=== PATIENT | female | born 1980 | race Caucasian/White ===

== ENCOUNTER 2017-04-08 06:11 | Day surgery (SDC) | payer MEDICAID ==
[2017-04-08 06:46] LABS: ADD MAN DIFF? NO
[2017-04-08 06:47] LABS: BASOPHIL # 0.1 10^3/ul (0.0-0.1); BASOPHILS % 0.8 % (0.0-2.0); EOSINOPHILS # 0.2 10^3/ul (0.0-0.5); EOSINOPHILS % 2.4 % (0.0-7.0); HEMATOCRIT 34.8 % (37.0-47.0); HEMOGLOBIN 12.5 g/dl (12.0-16.0); LYMPHOCYTES # 2.2 10^3/ul (0.8-2.9); MEAN CORPUSCULAR HEMOGLOBIN 31.3 pg (29.0-33.0); MEAN CORPUSCULAR HGB CONC 35.9 g/dl (32.0-37.0); MEAN PLATELET VOLUME 10.2 fl (7.4-10.4); MONOCYTE # 0.4 10^3/ul (0.3-0.9); MONOCYTES % 5.6 % (0.0-11.0); NEUTROPHIL # 3.8 10^3/ul (1.6-7.5); PLATELET COUNT 255 10^3/UL (140-415); RED CELL DISTRIBUTION WIDTH 12.5 % (11.5-14.5)
[2017-04-08 06:47] LABS: WHITE BLOOD COUNT 6.6 10^3/ul (4.8-10.8)
[2017-04-08] MEDS ORDERED: CEFAZOLIN 1 GM INJ (07:00)
[2017-04-08] MEDS ORDERED: MIDAZOLAM 1 MG/ML 2 ML INJ (07:31)
[2017-04-08] MEDS ORDERED: FENTAnyl 50 MCG/ML VIAL (07:31)
[2017-04-08] MEDS ORDERED: PROPOFOL 20 ML (07:33)
[2017-04-08] MEDS ORDERED: ONDANSETRON 4 MG INJ (07:34)
[2017-04-08] MEDS ORDERED: ROCURONIUM 50 MG INJ (07:34)
[2017-04-08] MEDS ORDERED: SUCCINYLCHOLINE CHLORIDE 100 MG/5 ML SYG IV (07:34)
[2017-04-08] MEDS ORDERED: LIDOCAINE 100 MG SYRINGE (07:34)
[2017-04-08] MEDS ORDERED: METOCLOPRAMIDE 10 MG INJ (07:35)
[2017-04-08] MEDS ORDERED: PHENYLephrine (100 MCG/ML) 5ML SYG (07:55)
[2017-04-08] MEDS ORDERED: HYDROmorphONE (0.2 MG/ML) 10ML SYG IV ×2 (08:53→09:00)
[2017-04-08] MEDS ORDERED: METOCLOPRAMIDE 10 MG INJ IV (09:00)
[2017-04-08] MEDS ORDERED: DIPHENHYDRAMINE 50 MG INJ IV (09:00)
[2017-04-08] MEDS ORDERED: MEPERIDINE 25 MG INJ IV (09:00)
[2017-04-08] MEDS ORDERED: KETOROLAC 15 MG INJ IV (09:00)
[2017-04-08] MEDS ORDERED: ONDANSETRON 4 MG INJ IV (09:00)
[2017-04-08] MEDS ORDERED: FENTAnyl 50 MCG/ML VIAL IV ×2 (09:00)
[2017-04-08] MEDS: HYDROmorphONE (0.2 MG/ML) 10ML SYG IV (09:08)
== END 2017-04-08 10:40 | disposition home or self-care (01) ==
LOC: SDS 06:11
DX: Z30.2 Encounter for sterilization (principal)
CPT/HCPCS: 58670; 84703; 85025; 86850; 86900; 86901